=== PATIENT | male | born 1970 | race Caucasian/White ===

== ENCOUNTER 2018-10-29 06:33 | Day surgery (SDC) | payer BC ==
[2018-10-29] MEDS ORDERED: LIDOCAINE 4% SOLUTION 50 ML BTL (08:57)
[2018-10-29] MEDS ORDERED: FENTAnyl 50 MCG/ML VIAL (11:06)
[2018-10-29] MEDS ORDERED: MIDAZOLAM 1 MG/ML 2 ML INJ ×3 (11:06)
== END 2018-10-29 13:55 | disposition home or self-care (01) ==
LOC: GIL 06:33
DX: Z12.11 Encounter for screening for malignant neoplasm of colon (principal); K29.30 Chronic superficial gastritis without bleeding; K64.4 Residual hemorrhoidal skin tags; K29.80 Duodenitis without bleeding; E11.9 Type 2 diabetes mellitus without complications
CPT/HCPCS: 43239; 82962; 88305; 88312